=== PATIENT | female | born 1985 | race Native Hawaiian/Other Pacific Islander ===

== ENCOUNTER 2019-05-08 14:30 | Emergency (ER) | payer OTHER ==
[~2019-05-08] VITALS: Ht 172.7 cm; Wt 51.3 kg
[2019-05-08 15:12] LABS: PLATELET COUNT 202 K/uL (152-353)
[2019-05-08 15:23] LABS: POTASSIUM 3.3 mmol/L (3.6-5.2); SODIUM 139 mmol/L (136-145)
[2019-05-08 20:15] VITALS: BP 107/70; TEMP 98.1
== END 2019-05-08 20:30 | disposition home or self-care (01) ==
LOC: ED 14:30
PROVIDERS: Emergency Medicine
DX: F20.9 Schizophrenia, unspecified (principal)
CPT/HCPCS: 80053; 80307; 80320; 80329; 81000; 81025; 82150; 83690; 85027; 93005; 99285